=== PATIENT | female | born 2000 | race Caucasian/White ===

== ENCOUNTER → 2020-03-21 | Outpatient (CLI) | payer MEDICAID ==
--- NOTE | 2020-03-21 09:22 | Diagnostic Imaging Report ---
PROCEDURE: MRI lumbar spine. TECHNIQUE: Multiplanar, multisequence MRI of the lumbar spine was performed without contrast. INDICATION: Lumbar radiculopathy, back pain COMPARISON: None available. FINDINGS: 5 lumbar type vertebral bodies are assumed. Alignment of the lumbar spine is well maintained. Vertebral body heights are well-maintained. Bone marrow signal intensity is unremarkable. Disc space heights are well-maintained. The conus medullaris is unremarkable and terminates at the appropriate location. The paraspinal soft tissues are unremarkable. T12/L1: No significant central canal or neural foraminal stenosis. L1/L2: No significant central canal or neural foraminal stenosis. L2/L3: No significant central canal or neural foraminal stenosis. L3/L4: No significant central canal or neural foraminal stenosis. L4/L5: No significant central canal or neural foraminal stenosis. L5/S1: No significant central canal or neural foraminal stenosis. IMPRESSION: No acute osseous abnormality. No significant central canal or neural foraminal stenosis. Dictated by: Dictated on workstation # [id number]
== END ==
LOC: RAD 07:53
PROVIDERS: ATTEND Nurse Practitioner Family
DX: M54.16 Radiculopathy, lumbar region (principal)
CPT/HCPCS: 72148